=== PATIENT | female | born 1990 | race African-American/Black ===

== ENCOUNTER 2021-01-17 00:32 | Day surgery (SDC) | payer OTHER, MEDICAID, SELFPAY ==
[2021-01-08 15:59] VITALS: BMI 33.3
[2021-01-17] VITALS (8 sets, daily range): BP systolic 115–141; BP diastolic 66–91; PULSE 91–105; RESP 13–20; TEMP 37.1; O2SAT 95–100
[2021-01-17 06:43] LABS: Urine Cotinine NEGATIVE
--- NOTE | 2021-01-17 06:58 | P.PNAN_ITS ---
Anes - Initial Pre Proc Eval Procedure: Operation Date: 01/17/21 07:30 Proposed Procedures p Bilateral Breast Reduction - Adriano Vogel MD Date/Time: 01/17/21 06:58 Surgeon: Adriano Vogel MD Pre Op Diagnosis: macromastia Patient Data Age: 30 Gender: F Height: 1.65 m Weight: 99.6 kg Allergies Allergy/AdvReac Type Severity Reaction Status Date / Time No Known Allergies Allergy Verified 01/17/21 06:30 Home Medications Medication Instructions Recorded Confirmed Type docusate sodium 100 mg capsule 100 mg PO BID #14 cap 01/07/21 01/08/21 Rx ondansetron HCl 4 mg tablet 4 mg PO Q6H PRN #30 tablet 01/07/21 01/08/21 Rx hydrocodone 5 mg-acetaminophen 325 1 tablet PO Q6H PRN #15 tablet 01/08/21 01/08/21 Rx mg tablet Laboratory Tests 01/17/21 06:28 Cotinine Negative Patient hx anesthesia problems: none Family hx anesthesia problems: none Results Review: All pre-operative results and documents have been reviewed as part of the pre-operative evaluation. [facility] Past Medical History Medical History Mitral valve prolapse Family History Family History Grandparent Hypertension Diabetes mellitus Cancer Social History Social History Smoking status: Never smoker Alcohol intake: current Drinks per week: 3 Substance use: never Substance use type: does not use Living arrangements: with family Spiritual care concerns: No Anes - Eval Final PreProcedure Day of Procedure 01/17/21 06:58 Patient weight: obese Heart: regular rate and rhythm Lungs: clear to auscultation Airway: Mallampati scale class II Neurological: alert and oriented Last oral intake: >/= 8 hours ASA classification: II Emergent: no Anesthetic plan: proceed Anesthesia type and monitoring: general LMA and standard monitoring Results Review: All pre-operative results and documents have been reviewed as part of the pre-operative evaluation. Informed Consent: The patient's anesthetic plan and its attendant risks and benefits were discussed with the patient/family/POA. Questions were solicited and answers provided to the satisfaction of the patient/family/POA.
--- NOTE | 2021-01-17 07:00 | WPDHPUPDATE1 ---
History and Physical Update Update Date/Time: 01/17/21 07:00 History and Physical has been reviewed, including an updated exam of the patient. There are NO changes in the patient's condition. Risks, benefits, and alternatives have been discussed and questions answered. Patient agrees to proceed with procedure.
[2021-01-17] MEDS: LACTATED RINGERS 1,000 ML 30 ML IV CONT ×2 (07:17→10:16)
[2021-01-17] MEDS: LACTATED RINGERS IRRIG 1,000 ML, LIDOCAINE HCL 1% LOCAL INJ 50 ML, EPINEPHrine HCL INJ ... INFILTRATE (07:24)
[2021-01-17] MEDS: ceFAZolin 2 GM/D5W 50 ML 2 GM/50 ML BAG IVPB (07:24)
--- NOTE | 2021-01-17 09:59 | W.PM.PROC2 ---
Procedure Note - Detailed Date of Procedure 01/17/21 Pre-op Diagnosis macromastia Post-op Diagnosis same Procedure Performed Bilateral Reduction Mammaplasty Surgeon Adriano Vogel MD Anesthesia general Findings Inverted T Superior medial pedicle Tissue removed: Right - 1070 grams Left - 1299 grams Description of Procedure She is here today for bilateral breast reduction. Previously and again today the risks, benefits, alternatives were discussed in extensive detail. I wanted her to be very realistic about the risks involved as well as expectations. We discussed aftercare and what to monitor for. She understands we can never guarantee final breast size and there will always be asymmetry. I was very upfront and honest about the risks of sensation change and even nipple loss (). Made sure answered all of her questions to her satisfaction today and consent was obtained. She was marked in the preoperative holding area with their verification. The patient was taken to the operating room placed supine on the operating table. Anesthesia was provided by anesthesiology. She was prepped and draped in a standard sterile fashion. A surgical time-out was taken. Stab incisions were made and I tumessed with a tumescent solution. I marked out the nipple-areolar complex at 42 mm. I then de-epithelialized the pedicle. The pedicle was well left well more than 2 cm in thickness. I then removed the inferior portion of the breast as well as the central keel to get shape based on preoperative planning. At this point copiously irrigated with saline solution and verified a strict hemostasis. I reapproximated the pillars using a 2-0 PDS. I tailor tacked the breast into place with elida. She was placed in a sitting position. I verified the nipple-areolar complex position based on preoperative markings, intraoperative measurements, and observation which were in full agreement. There was slight shape asymmetry which was addressed with 4mm basket cannula based on S.A.F.E. technique. Minimal volume removed. This nipple-areolar complex was marked at 42 mm in size. I then placed supine and de-epithelialized this. Nipple-areolar complex was inset with 3-0 stratafix. I closed IMF deep with 1 strattafix. I closed the vertical incision with 3-0 Monocryl in the IMF with 3-0 stratafix. Then everything was closed using a running subcuticular 4-0 Monocryl followed by Steri-Strips. A dressing was placed followed by surgical bra. Patient was awoke and taken to PACU without difficulty. All instrument sponge counts were correct at the end of the case. Estimated Blood Loss 30 Drains No Packing No Pathology yes (bilateral breast tissue) Complications No immediate complications Condition stable Disposition PACU
[2021-01-17] MEDS: oxyCODONE HCL (*CRX) 5 MG TAB IR PO (11:22)
== END 2021-01-17 12:05 | disposition home or self-care (01) ==
PROVIDERS: Visit Provider Surgery Plastic and Reconstructive Surgery
PROC: 0HBV0ZZ Excision of Bilateral Breast, Open Approach (ICD-10-PCS; CPT 19318; principal; 2021-01-17 07:30)
DX: N62 Hypertrophy of breast (principal); I34.1 Nonrheumatic mitral (valve) prolapse; E66.9 Obesity, unspecified; Z68.36 Body mass index [BMI] 36.0-36.9, adult; Z79.899 Other long term (current) drug therapy
CPT/HCPCS: 19318; 80307; 88305; A9270; J0171; J0690; J1100; J1170; J2250; J2405; J2704; J2710; J3010; J7120

== ENCOUNTER 2021-11-27 19:30 | Emergency (ER) | payer OTHER, MEDICAID, SELFPAY ==
[2021-11-27 19:50] VITALS: BP 124/85; PULSE 86; RESP 16; TEMP 37.3; O2SAT 99
--- NOTE | 2021-11-27 20:39 | ED.EAR ---
HPI - Ear Problem General Chief complaint: Ear Stated complaint: left ear pain Time Seen by Provider: 11/27/21 20:43 Related Data Home Medications Medication Instructions Recorded Confirmed norgestimate 0.25 mg-ethinyl 1 tablet PO DAILY 11/27/21 11/27/21 estradiol 35 mcg tablet (Estarylla) Allergies Allergy/AdvReac Type Severity Reaction Status Date / Time No Known Allergies Allergy Verified 11/27/21 20:27 [facility] Past Medical History Medical History Mitral valve prolapse Surgical History Surgical History Hx of bilateral breast reduction surgery Family History Family History Grandparent Hypertension Diabetes mellitus Cancer Social History Social History Smoking status: Unknown if ever smoked Alcohol intake: current Drinks per week: 3 Substance use: never Substance use type: does not use Spiritual care concerns: No Course Vital Signs Vital signs: Vital Signs Temperature 37.3 C 11/27/21 19:50 Pulse Rate 86 11/27/21 19:50 Respiratory Rate 16 11/27/21 19:50 Blood Pressure 124/85 11/27/21 19:50 Pulse Oximetry 99 11/27/21 19:50 Oxygen Delivery Room Air 11/27/21 19:50 Temperature 37.3 C 11/27/21 19:50 Pulse Rate 86 11/27/21 19:50 Respiratory Rate 16 11/27/21 19:50 Blood Pressure 124/85 11/27/21 19:50 Pulse Oximetry 99 11/27/21 19:50 Oxygen Delivery Room Air 11/27/21 19:50 Medical Decision Making Vital Signs Vital Signs: Vital Signs Temperature 37.3 C 11/27/21 19:50 Pulse Rate 86 11/27/21 19:50 Respiratory Rate 16 11/27/21 19:50 Blood Pressure 124/85 11/27/21 19:50 Pulse Oximetry 99 11/27/21 19:50 Oxygen Delivery Room Air 11/27/21 19:50 Temperature 37.3 C 11/27/21 19:50 Pulse Rate 86 11/27/21 19:50 Respiratory Rate 16 11/27/21 19:50 Blood Pressure 124/85 11/27/21 19:50 Pulse Oximetry 99 11/27/21 19:50 Oxygen Delivery Room Air 11/27/21 19:50 Discharge Plan Discharge Clinical Impression: Otitis media of left ear, URI, acute Patient Disposition: Home, Self-Care Condition: Stable Instructions: Antibiotic Form Additional Instructions: Increase fluids especially juices and water [id number] cough and cold medicine of your choice for your symptoms Zyrtec Claritin or Kaity daily include plain Sudafed 1 to 2 tablets 3 times daily heat to the face 20-30 minutes 4-6 times a day for pain Salt water gargles, throat lozenges or throat sprays as desired Antibiotic as directed--finished the medication If your symptoms persist, change or worsen significantly before you can contact your personal physician then please, without delay, go to the emergency department for further evaluation. Follow-up with PCP in 7-10 days or sooner if needed Follow up with PCP soon in regards to your blood pressure which is elevated above threshold for referral. Blood pressure above 120/80 may indicate pre-hypertension. Prescriptions: New amoxicillin 875 mg tablet 875 mg PO Q12H Qty: 20 0RF No Action norgestimate-ethinyl estradiol [Estarylla] 0.25-35 mg-mcg tablet 1 tablet PO DAILY Follow-up/Referrals: UNKNOWN,DOCTOR [Primary Care Provider] - Time of Disposition: 20:48 Quality [place] Coma Scale Eyes: Open Verbal: Oriented and Alert Motor: Follows Commands [place] Coma Total Score: 15
--- NOTE | 2021-11-27 20:43 | ED.EAR ---
HPI - Ear Problem General Chief complaint: Ear Stated complaint: left ear pain Time Seen by Provider: 11/27/21 20:43 Source: patient, RN notes reviewed and old records reviewed Mode of arrival: ambulatory History of Present Illness HPI Narrative: 30 year old female who presents to [facility] care with complaints of left ear pain starting today. Patient reports that she has has sinus congestion since Thursday and nasal drainage, denies any cough or shortness of breath. Patient reports only low grade temperature with no chills sweats or body aches. She has been taking some cold medications and some Mucinex for her congestion. MD Complaint: ear pain Location: left ear Severity: mild Treatment prior to arrival: other (cold medication and mucinex) Related Data Home Medications Medication Instructions Recorded Confirmed norgestimate 0.25 mg-ethinyl 1 tablet PO DAILY 11/27/21 11/27/21 estradiol 35 mcg tablet (Estarylla) Allergies Allergy/AdvReac Type Severity Reaction Status Date / Time No Known Allergies Allergy Verified 11/27/21 20:27 Review of Systems Review of Systems: CONSTITUTIONAL: Denies fever, chills, or sweats. EYES: Denies visual changes, redness, or discharge. ENT: Positive for rhinorrhea, congestion, sore throat,positive left ear otalgia. CARDIOVASCULAR: Denies chest pain, palpitations, or edema. RESPIRATORY: Denies cough or dyspnea. GASTROINTESTINAL: Denies abdominal pain, nausea, vomiting, or diarrhea. GENITOURINARY: Denies dysuria or hematuria. SKIN: Denies rash or itching. MUSCULOSKELETAL: Denies back pain, joint pain, or myalgia. NEUROLOGIC: Denies headache, numbness, or weakness. PSYCHIATRIC: Denies anxiety or depression. All systems reviewed & are unremarkable except as noted in HPI and below [facility] Past Medical History Medical History (Updated 11/28/21 @ 20:15 by Sandrita Tsai NP) COVID-19 02/2020 Missed abortions Mitral valve prolapse Surgical History Surgical History Hx of bilateral breast reduction surgery Family History Family History Grandparent Hypertension Diabetes mellitus Cancer Social History Social History (Updated 11/28/21 @ 20:14 by Sandrita Tsai NP) Smoking status: Never smoker Alcohol intake: current Drinks per week: 3 Substance use: never Substance use type: does not use Living arrangements: with family Gender identity (if verbalized by the patient): Female Spiritual care concerns: No Comments At time of signature, agree with nursing past medical, surgical, social and family history. There is no relevant family history pertinent to the presenting complaint Exam Narrative: GENERAL: Well-appearing, well-nourished, and in no acute distress. HEAD: Normocephalic, atraumatic. EYES: PERRLA and EOMI. ENT: Nares mild redness with clear rhinorrhea no epistaxis. Mucous membranes moist.Left TM red and bulging no drainage from ear canal, right TM normal with good light reflex, throat normal with no lesions or swelling NECK: Supple.no lymphadenopathy CHEST: Clear to auscultation. No respiratory distress.SAO2 99% on room air. HEART: Regular rate and rhythm. No murmur heard. Normal peripheral pulses. ABDOMEN: Soft, nontender, nondistended, normal active bowel sounds. EXTREMITIES: Normal range of motion. No edema. SKIN: Warm, dry, no rash. NEURO: No focal deficits. Alert and oriented x3. Course Course Level of Care: Express Care Visit Vital Signs Vital signs: Vital Signs Temperature 37.3 C 11/27/21 19:50 Pulse Rate 86 11/27/21 19:50 Respiratory Rate 16 11/27/21 19:50 Blood Pressure 124/85 11/27/21 19:50 Pulse Oximetry 99 11/27/21 19:50 Oxygen Delivery Room Air 11/27/21 19:50 Temperature 37.3 C 11/27/21 19:50 Pulse Rate 86 11/27/21 19:50 Respiratory Rate 16 11/27/21 19:50 Blood Pressure 124/85
== END 2021-11-27 20:50 | disposition home or self-care (01) ==
PROVIDERS: Emergency Provider Registered Nurse
DX: H66.92 Otitis media, unspecified, left ear (principal); J06.9 Acute upper respiratory infection, unspecified; I34.1 Nonrheumatic mitral (valve) prolapse; Z86.16 Personal history of COVID-19
CPT/HCPCS: 99213; G0463

== ENCOUNTER 2024-07-26 09:16 | Emergency (ER) | payer BC, SELFPAY ==
--- NOTE | ~2024-07-26 | CT_ITS ---
Non-contrast Head CT History: Headache Technique: Axial non-contrast imaging of the brain was performed. Dose reduction technique was used on this scan by utilizing automated exposure control and iterative reconstruction technique. The dose -length product (DLP) was 605.33 mGy-cm. Findings: There is no evidence of intracranial hemorrhage, mass lesion, or acute infarct. Brain par enchyma appears normal. The ventricles and subarachnoid spaces are normal in size. The calvarium ap pears normal. The visualized paranasal sinuses and mastoid air cells are clear. Impression: No significant abnormality seen. Reviewed, dictated and finalized at location . Impression: No significant abnormality seen.
[2024-07-26 09:32] VITALS: BP 120/85; PULSE 96; RESP 16; TEMP 36.5; O2SAT 100
[2024-07-26 10:04] LABS: BEDSIDEPREGUCG Negative (Negative)
--- OUTSIDE RECORDS SUMMARY | 2024-07-26 10:11 | XMS_ITS | Referral Summary ---
Author Organization [facility] Address [address] [place] [address] Care Team Providers Care Field Service Engineer Name Role Phone Sara Olmos Primary Care Provider + Allergies No known active allergies Medications Estarylla 0.25-35 mg-mcg per tablet Take 1 tablet by mouth daily 01/15/2022 Active Wegovy 1.7 mg/0.75 mL auto-injector INJECT 1.7 MG UNDER THE SKIN EVERY 7 DAYS 4 mL 01/14/2023 Active Active Problems Problem Noted Date Diagnosed Date Class 2 obesity due to exces s calories without serious comorbidity with body mass index (BMI) of 37.0 to 37.9 in adult 11/10/2019 Assessment & Plan (01/29/2022 10:56 AM CDT): Start Contravec Contrave start: Week 1: 1 pill in the AM Week 2: 1 pill in the AM, 1 pill in the PM Week 3: 2 pills in the AM, 1 pill in the PM Week 4: 2 pills in the AM, 2 pills in the PM Assessment & Plan (06/06/2021 3:51 PM UX DESIGN MANAGER): Failed phentermine and topiramate Start Wegovy Assessment & Plan (08/31/2020 12:56 PM CDT): Gaining weight again Restart phentermine/topamax combo Discussed bariatric surgery, but she defers this for now Assessment & Plan (02/13/2020 4:12 PM UX DESIGN MANAGER): BMI Follow-up includes: Weight loss medications. Continue healthy diet, exercise. Will continue phentermine and add Topamax - insurance will not cover Qsymia. Too expensive. Patient MUST monitor BP and will send back [facility] message or call with readings. Assessment & Plan (11/10/2019 2:21 PM CDT): Will try phentermine again BMI Follow-up includes: nutrition counseling, exercise counseling and education provided. 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 Immunizations Immunization Administration Dates Next Due Influenza, Quadrivalent, Spl it, Intramuscular 01/03/2015 Influenza, Unspecified 01/04/2022(Deferr ed: Patient Refused),04/27/2021,01/05/2020, 019 Tdap 11/08/2014 Social History Tobacco Use Types Packs/Day Years Used Date Smoking Tobacco: Never Smokeless Tobacco: Never Tobacco Cessation:Counseling Given: Not Answered Alcohol Use Standard Drinks/Week Comments Yes 0 (1 standard drink = 0.6 oz pur e alcohol) occas PHQ-2 Answer Date Recorded PHQ-2 Total Score (If total score is 3 or more points, staff should administer the PHQ-9) 0 06/09/2022 Comments Unknown Sex and Gender Information Value Date Recorded Sex Assigned at Not on file Legal Sex Female 6:50 PM UX DESIGN MANAGER Gender Identity Not on file Sexual Orientation Not on file Last Filed Vital Signs Vital Sign Reading Time Taken Comments Blood Pressure 120/74 06/09/2022 9:12 AM UX DESIGN MANAGER Pulse 91 06/09/2022 9:12 AM UX DESIGN MANAGER Temperature 36.3 C (97.3 F) 06/09/2022 9:12 AM UX DESIGN MANAGER Respiratory Rate 18 06/09/2022 9:12 AM UX DESIGN MANAGER Oxygen Saturation 98% 06/09/2022 9:12 AM UX DESIGN MANAGER Inhaled Oxygen Concentration - - Weight 102.4 kg (225 lb 12.8 oz) 06/09/2022 9:12 AM UX DESIGN MANAGER Height 165.1 cm (5' 5 ) 06/09/2022 9:12 AM UX DESIGN MANAGER Body Mass Index 37.58 06/09/2022 9:12 AM UX DESIGN MANAGER Plan of Treatment Not on file Insurance [facility] H[facility]/PPO Address: [place] [address] Care Teams Field Service Engineer Relationship Specialty Start Date End Date Sara Olmos PA PCP - General Family Medicine 02/13/20
--- OUTSIDE RECORDS SUMMARY | 2024-07-26 10:11 | XMS_ITS | Data Portability ---
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 [address] [place] [address] 05/09/2024 11:01:44 05/09/2024 15:34:40 Gynecologic examination [id number] Z01.419 Patient is an establishe d patient who presents for a gynecologi phillip Annual Exam. The patient denies any changes in her medical history. The patient denies any changes in her family medical history. Annual Exam:She reports having no significan t SENIOR PRINCIPAL ARCHITECT symptoms.H er menses are regular, occurring every 1 month(s). Menses lasts for 5 days. Reports over the past 6 months they have gotten heavier. Reports using 1 pad/tampon an hour. RTC for TVUS.Pt is currently using nothing for contracept ion. She is satisfied with her current method. Pap History:Jenna bourne is due for a pap smear. Breast History:Jenna bourne denies breast symptoms. Education on Breast Self Awareness given. Family History:Ne gative for Breast Cancer, Cervical Cancer, Colon Cancer, Endometria l Cancer and Ovarian Cancer. MYRisk test offered and declined. Patient is regularly seen by PCP for preventati ve care: Yes Screening for malignant neoplasm of cervix [id number] Z12.4 Contracept ion education 160461812 Z30.09 Contracept lizeth counseling : Discussed options including OCPs, NuvaRing, Nexplanon, hormonal and copper IUDs. Discussed risks, efficacy, noncontrac eptive benefits, and side effects of each option, including risk of VTE with hormonal contracept ion and uterine perforatio n, expulsion, infection with IUD. Depression screening 171 Z13.31 See PHQ-9 Venereal d isease screening [id number] Z11.3 Menorrhagia [id number] N9 2.0 RTC for TVUS Health Concerns Section Related Observation LastModified by Organization Detai ls LastModified Time None Recorded Concern Status LastModified by Organization Details LastModified Time None Recorded Advance Directives Directive None Recorded Payers Encounter Date Sequence Insurance Name Policy Number Policy Krishna Covered Member ID Krishna Member ID Guarantor Name 01/04/2022 1 [facility] Caroline Jones [id number] Caroline Jones 01/04/2022 2 [facility] Caroline Jones [id number] Caroline Jones 05/01/2023 1 [place] [id number] Caroline Jones [id number] Caroline Jones 05/09/2024 1 [place] [id number] Caroilne Jones [id number] Caroline Jones Notes Date Note Type Note Provider Name and Address Organization Details Recorded Time 01/04/2022 text/html Patient is a {{new established e stablished but last seen >3yrs ago}} patient who presents for a gynecological annual exam. The patient {{denies any changes in her medical history* reports the following changes in her medical history:}} The patients {{denies any changes in her family medical history* reports the following changes in her fam med hx:}}. 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 Her menses are {{regular irregular absent}}, occurring every {{1 2 3 4}} month(s). She describes her menstrual flow as {{absent light norm al heavy heavy with clots}} and has had {{frequent occasion al no}} spotting. She is using {{condoms BRIAN POP v aginal ring IUD Depo Provera Nexplanon d iaphgram withdrawal period tracking tubal ligation vasectomy nothing}} for contraception. She is {{satisfied dissati sfied}} with her current method. Pap History: She {{is is not}} due for a pap smear. The patient {{does does not}} have a history of an abnormal pap and/or HPV. Breast History: She {{admits denies}} breast symptoms. She performs breast exams {{never regularly o ccasionally}}. Social History: She {{is is not is not currently}} sexually active with {{a male partner a female partner her her both male and female partners}}. She {{admits denies}} complaints about sexual activity. Patient {{reports* denies}} feeling safe at home from {{emotional, physical, and verbal* emotional p hysical verbal}} abuse. She{{does does not}} desire STD testing. She exercises {{never rarely occa sionally regularly} }. The patient {{admits to denies has quit}} {{smoking and recreational drugs smoking/vapin g using recreational drugs using marijuana}}. She {{admits to denies}} drinking alcohol. Patient is regularly seen by PCP for preventative care: {{Yes No}} BARRY NORTH CNM [address] [place], [address], [email or web address] 01/04/2022 11:23:09 05/01/2023 text/html Caroline is here fo r annual exam. LMP 04/10/23. Last pap 07/09/20. Pt would like std testing today. COLIN MORTON [facility] [place], [address], [facility] [email or web address] 05/01/2023 10:35:33 05/09/2024 text/html Annual GYNReport ed bypatient.Menstrual cycle:Normal menses Urinary symptoms:No hematuria; No incontinence Vulva:No genital lesion Vagina:Normal vaginal discharge Breast:No breast pain; No breast lump; No nipple discharge Sexual complaints:No sexual complaints; No pain during intercourse; Normal libido Menopausal Symptoms:No menopausal symptoms; Normal vaginal lubrication Psychological symptoms:No depression; No anxiety; No PMDD Caroline is here for an annual exam. Pt LMP was 05/03/24. She does not practice control. Pt last pap was in 2020. She scored 0 on the PHQ9 screening. Pt has no additional issues. MANAV RODRIGUEZ-ELVIA [address] [place], [address], [facility] 05/09/2024 11:36:05 OBGyn Episode Ob Episode Information Episode Created Date Number of Fetuses Patient Bloodtype Patient rh Status Prepregnancy Weight lbs Domestic Partner Domestic Partner Phone Father Name Learning Specialist Status 06/21/19 22 1 CLOSED Fetus Data First Name Last Name Admitted to NICU Weight (g) Sex Living Outcome Pediatric Complications Fetus ID Race Codes Race Delivery Type [id number] Dago Calculation Initial Dago Date Initial Exam Date Initial Exam Provider Initial Ultrasound Date Last Menstrual Period Date Ultra Sound Weeks Gestation 0 Eighteen To Twenty Week Dago Update Ultra Sound Date Fundal Height At Umbil Quickening Date Ultra Sound Latest Weeks Gestation Final Dago Confirmed By Final Dago Confirmed Date Final Dago Date Ultra Sound Latest Days Gestation 0 0 Menstrual History Last Menstrual Date Menses Monthly On Bcp Conception Prior Menses Frequency Hcg Plus Date Menarche Onset Age Delivery Information Delivery Date Delivery Type Labor Anesthesia Weeks Gestation Incision Type Labor Labor Length Hrs Delivered By Post Complications Tubal Sterilization Discharge Date Comments 4 None 8 false Discharge Information Feeding Method Contraceptive Method Maternal HG B and HCT Levels Ob Episode Information Episode Created Date Number of Fetuses Patient Bloodtype Patient rh Status Prepregnancy Weight lbs Domestic Partner Domestic Partner Phone Father Name Learning Specialist Status 06/21/19 22 1 CLOSED Fetus Data First Name Last Name Admitted to NICU Weight (g) Sex Living Outcome Pediatric Complications Fetus ID Race Codes Race Delivery Type 2721.55 2 M [id number] Dago Calculation Initial Dago Date Initial Exam Date Initial Exam Provider Initial Ultrasound Date Last Menstrual Period Date Ultra Sound Weeks Gestation 0 Eighteen To Twenty Week Dago Update Ultra Sound Date Fundal Height At Umbil Quickening Date Ultra Sound Latest Weeks Gestation Final Dago Confirmed By Final Dago Confirmed Date Final Dago Date Ultra Sound Latest Days Gestation 0 0 Menstrual History Last Menstrual Date Menses Monthly On Bcp Conception Prior Menses Frequency Hcg Plus Date Menarche Onset Age Delivery Information Delivery Date Delivery Type Labor Anesthesia Weeks Gestation Incision Type Labor Labor Length Hrs Delivered By Post Complications Tubal Sterilization Discharge Date Comments 5 39 false Comments : kidney problems Discharge Information Feeding Method Contraceptive Method Maternal HG B and HCT Levels Ob Episode Information Episode Created Date Number of Fetuses Patient Bloodtype Patient rh Status Prepregnancy Weight lbs Domestic Partner Domestic Partner Phone Father Name Learning Specialist Status 06/21/19 22 1 CLOSED Fetus Data First Name Last Name Admitted to NICU Weight (g) Sex Living Outcome Pediatric Complications Fetus ID Race Codes Race Delivery Type [id number] Dago Calculation Initial Dago Date Initial Exam Date Initial Exam Provider Initial Ultrasound Date Last Menstrual Period Date Ultra Sound Weeks Gestation 0 Eighteen To Twenty Week Dago Update Ultra Sound Date Fundal Height At Umbil Quickening Date Ultra Sound Latest Weeks Gestation Final Dago Confirmed By Final Dago Confirmed Date Final Dago Date Ultra Sound Latest Days Gestation 0 0 Menstrual History Last Menstrual Date Menses Monthly On Bcp Conception Prior Menses Frequency Hcg Plus Date Menarche Onset Age Delivery Information Delivery Date Delivery Type Labor Anesthesia Weeks Gestation Incision Type Labor Labor Length Hrs Delivered By Post Complications Tubal Sterilization Discharge Date Comments 6 None 8 false Discharge Information Feeding Method Contraceptive Method Maternal HG B and HCT Levels Ob Episode Information Episode Created Date Number of Fetuses Patient Bloodtype Patient rh Status Prepregnancy Weight lbs Domestic Partner Domestic Partner Phone Father Name Learning Specialist Status 06/21/19 22 1 CLOSED Fetus Data First Name Last Name Admitted to NICU Weight (g) Sex Living Outcome Pediatric Complications Fetus ID Race Codes Race Delivery Type [id number] Dago Calculation Initial Dago Date Initial Exam Date Initial Exam Provider Initial Ultrasound Date Last Menstrual Period Date Ultra Sound Weeks Gestation 0 Eighteen To Twenty Week Dago Update Ultra Sound Date Fundal Height At Umbil Quickening Date Ultra Sound Latest Weeks Gestation Final Dago Confirmed By Final Dago Confirmed Date Final Dago Date Ultra Sound Latest Days Gestation 0 0 Menstrual History Last Menstrual Date Menses Monthly On Bcp Conception Prior Menses Frequency Hcg Plus Date Menarche Onset Age Delivery Information Delivery Date Delivery Type Labor Anesthesia Weeks Gestation Incision Type Labor Labor Length Hrs Delivered By Post Complications Tubal Sterilization Discharge Date Comments 7 None 8 false Discharge Information Feeding Method Contraceptive Method Maternal HG B and HCT Levels Ob Episode Information Episode Created Date Number of Fetuses Patient Bloodtype Patient rh Status Prepregnancy Weight lbs Domestic Partner Domestic Partner Phone Father Name Learning Specialist Status 06/21/19 22 1 CLOSED Fetus Data First Name Last Name Admitted to NICU Weight (g) Sex Living Outcome Pediatric Complications Fetus ID Race Codes Race Delivery Type 3628.73 6 M [id number] Dago Calculation Initial Dago Date Initial Exam Date Initial Exam Provider Initial Ultrasound Date Last Menstrual Period Date Ultra Sound Weeks Gestation 0 Eighteen To Twenty Week Dago Update Ultra Sound Date Fundal Height At Umbil Quickening Date Ultra Sound Latest Weeks Gestation Final Dago Confirmed By Final Dago Confirmed Date Final Dago Date Ultra Sound Latest Days Gestation 0 0 Menstrual History Last Menstrual Date Menses Monthly On Bcp Conception Prior Menses Frequency Hcg Plus Date Menarche Onset Age Delivery Information Delivery Date Delivery Type Labor Anesthesia Weeks Gestation Incision Type Labor Labor Length Hrs Delivered By Post Complications Tubal Sterilization Discharge Date Comments 0 43.4 false Discharge Information Feeding Method Contraceptive Method Maternal HG B and HCT Levels
--- OUTSIDE RECORDS SUMMARY | 2024-07-26 10:11 | XMS_ITS | Clinical Summary ---
Author Organization [facility] Address [address] [place] [address] Care Team Providers Care Manager Statistical Name Role Phone Sara Olmos Primary Care Provider [phone] Allergies No known active allergies Medications phentermine 37.5 MG tablet Take 37.5 mg by mouth before breakfast. 01/16/2020 Active Active Problems Problem Noted Date Diagnosed Date Encounter for elective induction of labor ([facility]/ [facility]) 08/18/2019 Immunizations Immunization Administration Dates Next Due MODERNA COVID-19 (12+) MRNA, LNP-S, PF, 100 MCG/ 0.5 ML DOSE 05/08/2020,04/10/2020 Family History Medical History Relation Comments None Father Cancer Maternal Grandmother pancreas None Mother Diabetes Paternal Grandmother Hypertension Paternal Grandmother Kidney Disease Paternal Grandmother Relation Status Comments Father Alive Maternal Grandmother Mother Alive Paternal Grandmother Sister Alive Social History Tobacco Use Types Packs/Day Years Used Date Smoking Tobacco: Never Smokeless Tobacco: Never Alcohol Use Standard Drinks/Week Comments No 0 (1 standard drink = 0.6 oz pur e alcohol) AUDIT-C Answer Date Recorded Frequency of Alcohol Consumption Never 03/31/2019 Average Number of Drinks Not on file 019 Frequency of Binge Drinking Not on file 03/07 Comments No Sex and Gender Information Value Date Recorded Sex Assigned at Not on file Legal Sex Female 6:08 PM CDT Gender Identity Not on file Sexual Orientation Not on file Last Filed Vital Signs Vital Sign Reading Time Taken Comments Blood Pressure 128/74 02/19/2020 8:19 AM MARRIAGE COUNSELOR MINISTER Pulse 110 02/19/2020 8:19 AM MARRIAGE COUNSELOR MINISTER Temperature 36.6 C (97.8 F) 02/19/2020 8:19 AM MARRIAGE COUNSELOR MINISTER Respiratory Rate 18 02/19/2020 8:19 AM MARRIAGE COUNSELOR MINISTER Oxygen Saturation 100% 02/19/2020 8:19 AM MARRIAGE COUNSELOR MINISTER Inhaled Oxygen Concentration - - Weight 81.6 kg (180 lb) 02/19/2020 8:19 AM MARRIAGE COUNSELOR MINISTER Height 165.1 cm (5' 5 ) 02/19/2020 8:19 AM MARRIAGE COUNSELOR MINISTER Body Mass Index 29.95 02/19/2020 8:19 AM MARRIAGE COUNSELOR MINISTER Plan of Treatment Health Maintenance Due Date Last Done Comments Cervical Cancer Screening Pa p Smear (Age 30 to 64) Every 3 Years 1988 Annual Physical 12/13/1991 Hepatitis C 2006 DTaP, Tdap and Td Vaccines ( 1 - Tdap) 12/13/2007 Hepatitis B Vaccines (1 of 3 - 19+ 3-dose series) 12/13/2007 Cervical Cancer Screening Pa p with HPV Testing (Age 30 to 64) Every 5 Years 2018 Cervical Cancer Screening wi HPV 2018 COVID-19 Vaccine (2023-2 5 season) 2023 05/08/2020, 04/10/2020 HPV Vaccines Aged Out No longer eligi ble based on patient's age to complete this topic Meningococcal B Vaccine Aged Out No l onger eligible based on patient's age to complete this topic Meningococcal Vaccine Aged Out No loren epifanio eligible based on patient's age to complete this topic Pneumococcal Vaccine: Pediatrics (0 to 5 Years) and At-Risk Patients (6 to 49 Years) Aged Out No longer eligible b ased on patient's age to complete this topic RSV Immunizations Under 20 Months Aged Out No longer eligible b ased on patient's age to complete this topic Insurance [place] [address] [place] [address] INSURANCE Advance Directives * Full Code (Latest Code Status on File) Date Activated Date Inactivated Comments 08/18/2019 12:40 AM 08/18/2019 4:20 PM Care Teams Manager Statistical Relationship Specialty Start Date End Date Sara Olmos PA PCP - General PHYSICIAN SUPERVISORY LIFEGUARD 03/31/19
--- OUTSIDE RECORDS SUMMARY | 2024-07-26 10:11 | XMS_ITS | Clinical Summary ---
Author Organization [facility] Address [address] [place] [address] Care Team Providers Care Freelance Writer Name Role Phone Unavailable Primary Care Provider Unavailabl e Source Comments [facility],non-owned Affiliates and Associated Physician Practices is amultiple site organization consisting of ambulatory clinics and hospital sitesin [place], [place], [place] and [place]. This disclosure is being madepursuant to the Care Everywhere program and may not contain all information available regarding this patient. Last updated 17.[facility] Allergies No known active allergies Medications * Be aware that medications may not be up to date on this document. Alwaysverify current medications with the patient. acetaminophen (TYLENOL) 325 MG tablet Take 325 mg by mouth as needed for Pain or Headache Maximum allowable Acetaminophen amount = 4 Grams (4000 mg) / 24 hours. Active Active Problems Patient Care Coordination No te Formatting of this note migh t be different from the original. 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 ASSISTED PATIENT--PLEASE CALL [phone] IF TRIAGED OR ADMITTED Care Provider: Dr. Dm Beatty (OB), [facility] ([facility]) [facility] consultants involved: Nurse Coordinator- Kiley, [facility]- Rosio, Nephrology- Amber, Footprints- Krys, guest services agent- Reena Diagnosis: Unilateral right multicystic dysplastic kidney, left pelvic kidney US from 12/25/14: Single, live, IUP 34w4d. Appropriate growth. Normal amniotic fluid. 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 Left pelvic kidney. Reassuring UA Dopplers. care needed at : Urine output and BP assessment Planned care after delivery (per 10.30.14 Amber consult): Assessment includes BP measurement, UOP determination, and renal function. Recommend renal ultrasound between day 2 to 7 to be sure of no other associated abnormalities. If no hydronephrosis, then no UTI prophylaxis necessary. Follow-up in renal clinic in 4 weeks with repeat renal ultrasound. Contact web ui developer Ruchi Barrios at [phone] to schedule follow-up. Notify her patient was followed through the [facility]. Tung Nut Grower: TBD- list provided 12/25/14 Planned surveillance: Initial ASSISTED appointment 10/30/14 at 0900 Planned delivery location: [facility] Planned GA at delivery: Term Planned mode of delivery: - TBD Placenta Instructions: Not needed for studies by ASSISTED unless otherwise indicated by Dr. Avelar. Autopsy indicated: Not anticipated as necessary. Genetics note: Patient was offered and declined diagnostic testing and screening. Ingredient Specialist Concerns:12/25/14- There are no social service concerns identified at this time This care plan is based on evaluation and is subject to change based on assessment. Please see Images or Cardiac under Chart Review for US/ ECHO/ MRI reports. Plan of care faxed to [facility] Labor and Delivery 01/04/15 by KK. Social History Tobacco Use Types Packs/Day Years Used Date Smoking Tobacco: Never Alcohol Use Standard Drinks/Week Comments No 0 (1 standard drink = 0.6 oz pur e alcohol) Comments No Sex and Gender Information Value Date Recorded Sex Assigned at Not on file Legal Sex Female 5:43 AM FIRST AID ATTENDANT Gender Identity Not on file Sexual Orientation Not on file Last Filed Vital Signs Vital Sign Reading Time Taken Comments Blood Pressure 108/75 12/25/2014 10:17 AM CDT Pulse 93 12/25/2014 10:17 AM CDT Temperature - - Respiratory Rate - - Oxygen Saturation - - Inhaled Oxygen Concentration - - Weight 97.6 kg (215 lb 2.7 oz) 12/25/2014 10:17 AM CDT Height - - Body Mass Index - - Plan of Treatment Health Maintenance Due Date Last Done Comments HIV SCREENING 12/13/2003 HEPATITIS C SCREENING 12/08/2006 DTAP/TDAP/TD VACCINES (1 - Tdap) 12/13/2007 HEPATITIS B VACCINE (1 of 3 - 19+ 3-dose series) 12/13/2007 COVID-19 VACCINE ( - 2023-2 5 season) 2023 DEPRESSION SCREENING 04/06/2024 INFLUENZA VACCINE (Season Ended) 2024 ZOSTER VACCINE (1 of 2) 2038 HIB VACCINE Aged Out No longer eligi ble based on patient's age to complete this topic HPV VACCINE Aged Out No longer eligi ble based on patient's age to complete this topic MENINGOCOCCAL (Group B) VACC INE SHARED DECISION-MAKING Aged Out No longer eligibl e based on patient's age to complete this topic MENINGOCOCCAL GROUPS A/C/Y/W VACCINE Aged Out No longer eligible b ased on patient's age to complete this topic PNEUMOCOCCAL VACCINE Aged Out No long er eligible based on patient's age to complete this topic Insurance [facility] [facility] Address: [address] [place] [address] MEDICAID - [place] MEDICAID - OUT OF STATE UHC MANAGED MEDICARE ADV
--- OUTSIDE RECORDS SUMMARY | 2024-07-26 10:11 | XMS_ITS | Clinical Summary ---
Author Organization [facility] Address [address] [place] [address] Care Team Providers Care Bessemer Converter Blower Name Role Phone Sara Olmos Primary Care [...] PM Assessment & Plan (06/06/2021 3:51 PM FOREST BOT[employer] INSTRUCTOR): Failed phentermine and topiramate Start Wegovy Assessment & Plan (08/31/2020 12:56 PM CDT): Gaining weight again Restart phentermine/topamax combo Discussed bariatric surgery, but she defers this for now Assessment & Plan (02/13/2020 4:12 PM FOREST BOTANY INSTRUCTOR): BMI Follow-up includes: Weight loss medications. Continue healthy diet, exercise. Will continue phentermine and add Topamax - insurance will not cover Qsymia. Too expensive. Patient MUST monitor BP and will send back GetFresh message or call with readings. Assessment & Plan (11/10/2019 2:21 PM CDT): Will try phentermine again BMI Follow-up includes: nutrition counseling, exercise counseling and education provided. 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 Immunizations Immunization Administration Dates Next Due Influenza, Quadrivalent, Spl it, Intramuscular 01/03/2015 Influenza, Unspecified 01/04/2022(Deferr ed: Patient Refused),04/27/2021,01/05/2020, 019 Tdap 11/08/2014 Surgical History Surgery Date Site/Laterality Comments NO PAST SURGERIES REDUCTION MAMMAPLASTY Family History Medical History Relation Name Comments No Known Problems Father No Known Problems Mother Heart disease Paternal Grandmother Relation Name Status Comments Father Alive Mother Alive Paternal Grandmother Social History Tobacco Use Types Packs/Day Years [...] on file Legal Sex Female 6:50 PM FOREST BOTANY INSTRUCTOR Gender Identity Not on file Sexual Orientation Not on file Obstetrics History Last Filed Vital Signs Vital Sign Reading Time Taken Comments Blood Pressure 120/74 06/09/2022 9:12 AM FOREST BOT[employer] INSTRUCTOR Pulse 91 06/09/2022 9:12 AM FOREST BOT[employer] INSTRUCTOR Temperature 36.3 C (97.3 F) 06/09/2022 9:12 AM FOREST BOTANY INSTRUCTOR Respiratory Rate 18 06/09/2022 9:12 AM FOREST BOTANY INSTRUCTOR Oxygen Saturation 98% 06/09/2022 9:12 AM FOREST BOTANY INSTRUCTOR Inhaled Oxygen Concentration - - Weight 102.4 kg (225 lb 12.8 oz) 06/09/2022 9:12 AM FOREST BOTANY INSTRUCTOR Height 165.1 cm (5' 5 ) 06/09/2022 9:12 AM FOREST BOT[employer] INSTRUCTOR Body Mass Index 37.58 06/09/2022 9:12 AM FOREST BOTANY INSTRUCTOR Plan of Treatment Health Maintenance Due Date Last Done Comments Cervical Cancer Screening 1988 Hepatitis C Screening 1988 Varicella Vaccines (1 of 2 - 13+ 2-dose series) 2001 Hepatitis B Screening 2006 Depression Screening 06/10/2023 06/09/2022, 01/29/2022, 06/06/2021, Additional history exists Regular Well Visit/Exam 18-64 06/10/2023 06/09/2022, 06/06/2021 Covid-19 Vaccine ( season) 2023 05/08/2020, 04/10/2020 Influenza Vaccine (#1) 2023 , 01/05/2020, 01/04/2019, Additional history exists DTaP/Tdap/Td Vaccine (2 - Td or Tdap) 11/08/2024 11/08/2014 HPV Vaccines Aged Out No longer eligi ble based on patient's age to complete this topic Pneumococcal vaccine <65 Aged Out No longer eligible based on patient's age to complete this topic Insurance [facility] H[facility]PPO Address: [facility] [address] [place] [address] Care Teams Bessemer Converter Blower Relationship Specialty Start Date End Date Sara Olmos PA PCP - General Family Medicine 02/13/20
--- OUTSIDE RECORDS SUMMARY | 2024-07-26 10:11 | XMS_ITS | Data Portability ---
Author Organization [facility], [employer] Address [address] [place] [address] Care Team Providers Care Services Host Name Role Phone PANTERA JORDAN Primary Care Provider Assessment Encounter Date Assessment Date Assessment LastModified by Organization Details LastModified Time 03/09/2023 03/09/2023 New patient presented for admission to the practice. Studies ordered as below. Discussed plan with patient, who expressed understanding . Follow up as noted below. [email or web address] Not available 03/09/2023 10:41:16 12/30/2023 12/30/2023 Patient presented for follow up. Studies ordered as below. Discussed plan with patient/quinton dillarder, who expressed understanding . Follow up as noted below. [email or web address] Not available 12/30/2023 19:06:27 Plan of Treatment Reminders Order Date Submit Date Provider Last Modified By Organization Details Last Modified Time Details Appointments None recorded. Lab HIV (1+2) Ab screen, serum 2023 [facility], [address], [place], [address], 4 19:41:24 amylase + lipase, serum 2023 [facility], [address], [place], [address], 4 19:41:24 CMP, serum or plasma 2023 024 [facility], [address], [place], [address], 4 08:22:13 CBC w/ auto diff 2023 024 [facility], [address], [place], [address], 4 08:22:14 H pylori Ag, stool 2023 024 [facility], [address], [place], [address], 4 15:13:53 hepatitis C Ab, serum 2022 023 [facility] Not available 3 16:43:45 lipid panel w/ direct LDL, serum 2022 023 [facility] Not available 3 10:53:43 CMP, serum or plasma 2022 023 [facility] Not available 3 16:43:47 CBC w/ auto diff 2022 023 [facility] Not available 3 16:43:46 HbA1c (hemoglobin A1c), blood 2022 023 [facility] Not available 3 10:53:42 TSH, serum or plasma 2022 023 [facility] Not available 3 16:43:49 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 Surgeries None recorded. Imaging XR, abdomen, complete 2023 024 [facility] [address] , [place] [address], [place], [address], 4 04:13:51 Medication Orders Senna Plus 8.6 mg-50 mg tablet 2023 024 [facility] [address], [address], [place], [address], 19:40:48 omeprazole 20 mg capsule,del ayed release 2023 024 [facility] [address], [address], [place], [address], 19:40:47 Wegovy 1.7 mg/0.75 mL subcutaneou s pen injector 2022 023 [facility] [address], [address], [place], [address], 10:55:19 Patient TargetsNo targets recorded. Patient Instructions Encounter Date Encounter Id Patient Instructions Last Modified By Organization Details Last Modified Time 03/09/2023 [id number] infection from tattoos: care instructions [email or web address] Not available 03/09/2023 10:53:38 body mass index: care instructions [email or web address] Not available 03/09/2023 10:53:38 learning about healthy weight [email or web address] Not available 03/09/2023 10:53:37 12/30/2023 [id number] infection from tattoos: care instructions [email or web address] Not available 12/30/2023 19:40:42 body mass index: care instructions [email or web address] Not available 12/30/2023 19:40:42 learning about healthy weight [email or web address] Not available 12/30/2023 19:40:42 learning about healthy weight [email or web address] Not available 12/30/2023 19:40:42 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 0 Not Available [facility] (Main Location) [address] ,, [place], [address], 03/10/2023 16:43:45 03/09/20 23 03/09/2023 HEPAT ITIS C ANTIB JENNIFER hepatitis C antibody NEGATI VE negati ve Not Available [facility] (Main Location) [address] ,, [place], [address], 03/10/2023 16:43:45 03/09/20 23 03/09/2023 COMPL ETE CBC W/AUT O DIFF WBC white blood cell count 7.0 thous and/u L 3.5-10 .0 Not Available [facility] (Main Location) [address] ,, [place], [address], 03/10/2023 16:43:46 03/09/20 23 03/09/2023 COMPL ETE CBC W/AUT O DIFF WBC red blood cell count 3.8 andrez on/uL 3.5-5. 5 Not Available [facility] (Main Location) [address] ,, [place], [address], 03/10/2023 16:43:46 03/09/20 23 03/09/2023 COMPL ETE CBC W/AUT O DIFF WBC hemoglobin 12.4 g/dL 11.5-1 6.5 Not Available [facility] (Main Location) [address] ,, [place], [address], 03/10/2023 16:43:46 03/09/20 23 03/09/2023 COMPL ETE CBC W/AUT O DIFF WBC hematocrit 39 % 35-55 Not Available [facility] (Main Location) [address] ,, [place], [address], 03/10/2023 16:43:46 03/09/20 23 03/09/2023 COMPL ETE CBC W/AUT O DIFF WBC MCH 33 pg 25-35 Not Available [facility] ,, [place], [address], 03/10/2023 16:43:46 03/09/20 23 03/09/2023 COMPL ETE CBC W/AUT O DIFF WBC MCHC 32 g/dL 31-38 Not Available [facility] (Main Location[facility] [address] ,, [place], [address], 03/10/2023 16:43:46 03/09/20 23 03/09/2023 COMPL ETE CBC W/AUT O DIFF WBC MCV 103 fL 75-100 high Not Available [facility] (Main Location[facility] [facility] ,, [place], [address], 03/10/2023 16:43:46 03/09/20 23 03/09/2023 COMPL ETE CBC W/AUT O DIFF WBC RDW-CV 13 % 11-15 Not Available [facility] (Main Location[facility] [address] ,, [place], [address], 03/10/2023 16:43:46 03/09/20 23 03/09/2023 COMPL ETE CBC W/AUT O DIFF WBC neutrophils% 64.5 % Not Available [facility] (Main Location[facility] [address] ,, [place], [address], 03/10/2023 16:43:46 03/09/20 23 03/09/2023 COMPL ETE CBC W/AUT O DIFF WBC lymphocytes% 27.6 % Not Available [facility] (Main Location[facility] [address] ,, [place], [address], 03/10/2023 16:43:46 03/09/20 23 03/09/2023 COMPL ETE CBC W/AUT O DIFF WBC monocytes% 6.5 % Not Available [facility] (Main Location) [address] ,, [place], [address], 03/10/2023 16:43:46 03/09/20 23 03/09/2023 COMPL ETE CBC W/AUT O DIFF WBC eosinophil % 0.7 % 0.0-7. 0 Not Available [facility] (Main Location) [address] ,, [place], [address], 03/10/2023 16:43:46 03/09/20 23 03/09/2023 COMPL ETE CBC W/AUT O DIFF WBC basophil % 0.4 % 0.0-3. 0 Not Available [facility] (Main Location) [facility] ,, [place], [address], 03/10/2023 16:43:46 03/09/20 23 03/09/2023 COMPL ETE CBC W/AUT O DIFF WBC absolute neutrophils 4.5 cells /uL 1.5-7. 8 Not Available [facility] (Main Location) [address] ,, [place], [address], 03/10/2023 16:43:46 03/09/20 23 03/09/2023 COMPL ETE CBC W/AUT O DIFF WBC absolute lymphocytes 1.92 cells /uL 0.85-3 .90 Not Available [facility] (Main Location) [address] ,, [place], [address], 03/10/2023 16:43:46 03/09/20 23 03/09/2023 COMPL ETE CBC W/AUT O DIFF WBC absolute monocytes 0.5 cells /uL 0.2-1. 0 Not Available [facility] (Main Location) [address] ,, [place], [address], 03/10/2023 16:43:46 03/09/20 23 03/09/2023 COMPL ETE CBC W/AUT O DIFF WBC absolute eosinophils 0.1 cells /uL 0.0-0. 5 Not Available [facility] (Main Location) [address] ,, [place], [address], 03/10/2023 16:43:46 03/09/20 23 03/09/2023 COMPL ETE CBC W/AUT O DIFF WBC absolute basophils 0.0 cells /uL 0.0-0. 2 Not Available [facility] (Main Location) [address] ,, [place], [address], 03/10/2023 16:43:46 03/09/20 23 03/09/2023 COMPL ETE CBC W/AUT O DIFF WBC platelet count 386 thous and/u L 100-40 0 Not Available [facility] (Main Location) [address] ,, [place], [address], 03/10/2023 16:43:46 03/09/20 23 03/09/2023 CMP (COMP REHEN SIVE METAB OLIC PANEL ) glucose 76 mg/dL 74-99 Not Available [facility] (Main Location) [address] ,, [place], [address], 03/10/2023 16:43:47 03/09/20 23 03/09/2023 CMP (COMP REHEN SIVE METAB OLIC PANEL ) urea nitrogen, blood (BUN) 13 mg/dL 6-20 Not Available [facility] (Main Location) [address] ,, [place], [address], 03/10/2023 16:43:47 03/09/20 23 03/09/2023 CMP (COMP REHEN SIVE METAB OLIC PANEL ) total bilirubin 0.4 mg/dL 0.0-1. 2 Not Available [facility] (Main Location) [facility] ,, [place], [address], 03/10/2023 16:43:47 03/09/20 23 03/09/2023 CMP (COMP REHEN SIVE METAB OLIC PANEL ) total protein 7.1 g/dL 6.6-8. 7 Not Available [facility] (Main Location) [employer] [address] ,, [place], [address], 03/10/2023 16:43:47 03/09/20 23 03/09/2023 CMP (COMP REHEN SIVE METAB OLIC PANEL ) alanine aminotransfe rase (ALT) 17 U/L 0-33 Not Available [facility] (Main Location) [facility] ,, [place], [address], 03/10/2023 16:43:47 03/09/20 23 03/09/2023 CMP (COMP REHEN SIVE METAB OLIC PANEL ) alkaline phosphatase 66 U/L 40-130 Not Available [facility] (Main Location) [employer] [address] ,, [place], [address], 03/10/2023 16:43:47 03/09/20 23 03/09/2023 CMP (COMP REHEN SIVE METAB OLIC PANEL ) aspartate aminotransfe rase (AST) 17 U/L 0-32 Not Available [facility] (Main Location) [employer] [address] ,, [place], [address], 03/10/2023 16:43:47 03/09/20 23 03/09/2023 CMP (COMP REHEN SIVE METAB OLIC PANEL ) calcium 9.6 mg/dL 8.6-10 .2 Not Available [facility] (Main Location) [address] ,, [place], [address], 03/10/2023 16:43:47 03/09/20 23 03/09/2023 CMP (COMP REHEN SIVE METAB OLIC PANEL ) albumin 4.5 g/dL 3.5-5. 2 Not Available [facility] (Main Location) [employer] [address] ,, [place], [address], 03/10/2023 16:43:47 03/09/20 23 03/09/2023 CMP (COMP REHEN SIVE METAB OLIC PANEL ) CO2 27 mmol/ L 22-29 Not Available [facility] (Main Location) [employer] [address] ,, [place], [address], 03/10/2023 16:43:47 03/09/20 23 03/09/2023 CMP (COMP REHEN SIVE METAB OLIC PANEL ) creatinine, serum 0.6 mg/dL 0.5-0. 9 Not Available [facility] (Main Location) [address] ,, [place], [address], 03/10/2023 16:43:47 03/09/20 23 03/09/2023 CMP (COMP REHEN SIVE METAB OLIC PANEL ) sodium, serum 138 mmol/ L 136-14 5 Not Available [facility] (Main Location) [address] ,, [place], [address], 03/10/2023 16:43:47 03/09/20 23 03/09/2023 CMP (COMP REHEN SIVE METAB OLIC PANEL ) potassium, serum 4.8 mmol/ L 3.5-5. 1 Not Available [facility] (Main Location) [address] ,, [place], [address], 03/10/2023 16:43:47 03/09/20 23 03/09/2023 CMP (COMP REHEN SIVE METAB OLIC PANEL ) chloride, serum 101 mmol/ L 98-107 Not Available [facility] (Main Location) [address] ,, [place], [address], 03/10/2023 16:43:47 03/09/20 23 03/09/2023 CMP (COMP REHEN SIVE METAB OLIC PANEL ) eGFR 127 >59 Persi stent reduc tion for 3 month s or more in an eGFR <60 mL/mi n/1.7 3 m2 defin es CKD. Patie nts with eGFR value s>/=6 0 mL/mi n/1.7 3 m2 may also have CKD if evide nce of persi stent protu niuri a is prese nt. Addit ional infor светлана braun may be found at www.k doqi. org. Not Available [facility] (Main Location) [address] ,, [place], [address], 03/10/2023 16:43:47 12/04/20 23 03/09/2023 DLDL dldl 114 mg/dL 0-100 high Not Available [facility] (Main Location) [facility] ,, [place], [address], 03/10/2023 16:43:48 03/09/20 23 03/09/2023 LIPID PANEL trigylceride s 78 mg/dL 0-150 Not Available [facility] (Main Location) [facility] ,, [place], [address], 03/10/2023 16:43:48 03/09/20 23 03/09/2023 LIPID PANEL cholesterol 200 mg/dL 0-200 Not Available [facility] (Main Location) [facility] ,, [place], [address], 03/10/2023 16:43:48 03/09/20 23 03/09/2023 LIPID PANEL uhdl 74 mg/dL 45-65 high Not Available [facility] (Main Location) [employer] [address] ,, [place], [address], 03/10/2023 16:43:48 03/09/20 23 03/09/2023 LIPID PANEL LDL, calculated 110 mg/dL 0-100 high Not Available [facility] (Main Location) [employer] [address] ,, [place], [address], 03/10/2023 16:43:48 03/09/20 23 03/09/2023 LIPID PANEL LDL, measured 114 mg/dL <99 high Not Available [facility] (Main Location) [facility] ,, [place], [address], 03/10/2023 16:43:48 03/09/20 23 03/09/2023 LIPID PANEL LDL/HDL ratio 1 mg/dL 0-5 Not Available [facility] (Main Location) [facility] ,, [place], [address], 03/10/2023 16:43:48 03/09/20 23 03/09/2023 LIPID PANEL VLDL 15.6 mg/dL 5.0-40 .0 Not Available [facility] (Main Location) [address] ,, [place], [address], 03/10/2023 16:43:48 03/09/20 23 03/09/2023 LIPID PANEL cholesterol/ HDL ratio 2.70 0.00-5 .00 Not Available [facility] (Main Location) [address] ,, [place], [address], 03/10/2023 16:43:48 03/09/20 23 03/09/2023 THYRO ID STIMU LATIN G HORMO NE (TSH) TSH 1.37 ?IU/m L 0.27-4 .20 Not Available [facility] (Main Location) [address] ,, [place], [address], 03/10/2023 16:43:49 03/09/20 23 03/09/2023 HEMOG LOBIN A1C HGBA1C 4.4 % 4.0-6. 0 Not Available [facility] (Main Location) [address] ,, [place], [address], 03/10/2023 16:43:54 03/11/20 23 03/11/2023 RETIC ULOCY TE reticulocyte count 2.8 % 0.5-2. 0 high Not Available [facility] (Main Location) [address] ,, [place], [address], 03/12/2023 13:23:25 03/11/20 23 03/11/2023 VITAM IN B12 AND FOLAT E folate 10.4 NG/mL 4.4-31 .0 Not Available [facility] (Main Location) [address] ,, [place], [address], 03/12/2023 13:23:26 03/11/20 23 03/11/2023 VITAM IN B12 AND FOLAT E vitamin B12 II 357 pg/mL 232-12 45 Not Available [facility] (Main Location) [facility] ,, [place], [address], 03/12/2023 13:23:26 01/04/20 24 01/04/2024 AMYLA SE amylase 95.0 U/L 31.0-1 24.0 Not Available [facility] [address] [facility] [address], [place], [address], 01/06/2024 08:22:12 01/04/20 24 01/04/2024 COMPR EHENS ABDIRIZAK METAB OLIC PANEL sodium 139 mmol/ L 134-14 4 Not Available [facility] [address] [facility], [place], [address], 01/06/2024 08:22:13 01/04/20 24 01/04/2024 COMPR EHENS ABDIRIZAK METAB OLIC PANEL potassium 4.4 mmol/ L 3.5-5. 2 Not Available [facility] [address] [facility] [address], [place], [address], 01/06/2024 08:22:13 01/04/20 24 01/04/2024 COMPR EHENS ABDIRIZAK METAB OLIC PANEL chloride 105 mmol/ L 98-107 Not Available [facility] [address] [facility] [address], [place], [address], 01/06/2024 08:22:13 01/04/20 24 01/04/2024 COMPR EHENS ABDIRIZAK METAB OLIC PANEL carbon dioxide (co2) 20.0 mmol/ L 18.0-2 9.0 Not Available [facility] [address] [facility] [address], [place], [address], 01/06/2024 08:22:13 01/04/20 24 01/04/2024 COMPR EHENS ABDIRIZAK METAB OLIC PANEL glucose 97 mg/dL 65-99 Gely l Fasti n - 99 mg/dL Impai red Fasti n - 125 mg/dL Diagn ostic of Diabe [facility]: => 126 mg/dL Ameri can [facility], 2008 Not Available [facility] [address] [facility] [address], [place], [address], 01/06/2024 08:22:13 01/04/20 24 01/04/2024 COMPR EHENS ABDIRIZAK METAB OLIC PANEL urea nitrogen (BUN) 16 mg/dL 6-[address] [facility] [address] [facility] [address], [place], [address], 01/06/2024 08:22:13 01/04/20 24 01/04/2024 COMPR EHENS ABDIRIZAK METAB OLIC PANEL creatinine 0.95 mg/dL 0.57-1 .00 Not Available [facility] [address] [facility] [address], [place], [address], 01/06/2024 08:22:13 01/04/20 24 01/04/2024 COMPR EHENS ABDIRIZAK METAB OLIC PANEL eGFR 80 mL/mi nute/ 1.73_ m2 >59 MDRD Study Equat ion: The calcu lated GFR is NOT appli cable for pedia tric (< 18 years old) and > 70 year old patie nts and patie nts that are NOT of stead [place] . Not Available [facility] [address] [facility] [address], [place], [address], 01/06/2024 08:22:13 01/04/20 24 01/04/2024 COMPR EHENS ABDIRIZAK METAB OLIC PANEL calcium 9.6 mg/dL 8.7-10 .2 Not Available [facility] [address] [facility] [address], [place], [address], 01/06/2024 08:22:13 01/04/20 24 01/04/2024 COMPR EHENS ABDIRIZAK METAB OLIC PANEL protein, total 6.8 gm/dL 6.4-8. 3 Not Available [facility] [address] [facility] [address], [place], [address], 01/06/2024 08:22:13 01/04/20 24 01/04/2024 COMPR EHENS ABDIRIZAK METAB OLIC PANEL albumin 4.4 gm/dL 3.5-5. 2 Not Available [facility] [address] [facility] [address], [place], [address], 01/06/2024 08:22:13 01/04/20 24 01/04/2024 COMPR EHENS ABDIRIZAK METAB OLIC PANEL bilirubin, total 0.30 mg/dL 0.00-1 .20 Not Available [facility] [address] [facility] [address], [place], [address], 01/06/2024 08:22:13 01/04/20 24 01/04/2024 COMPR EHENS ABDIRIZAK METAB OLIC PANEL alkaline phosphatase (ALP) 72 U/L 39-117 Not Available [facility] [address] [facility] [address], [place], [address], 01/06/2024 08:22:13 01/04/20 24 01/04/2024 COMPR EHENS ABDIRIZAK METAB OLIC PANEL aspartate aminotransfe rase (AST) 16 U/L 0-32 Not Available [facility] [address] [facility] [address], [place], [address], 01/06/2024 08:22:13 01/04/20 24 01/04/2024 COMPR EHENS ABDIRIZAK METAB OLIC PANEL alanine aminotransfe rase (ALT) 12 U/L 0-33 Not Available [facility] [address] [facility] [address], [place], [address], 01/06/2024 08:22:13 01/04/20 24 01/04/2024 COMPR EHENS ABDIRIZAK METAB OLIC PANEL A/G ratio (calculated) 1.8 ratio 1.0-2. 7 Not Available [facility] [address] [facility] [address], [place], [address], 01/06/2024 08:22:13 01/04/20 24 01/04/2024 COMPR EHENS ABDIRIZAK METAB OLIC PANEL globulin (calculated) 2.4 gm/dL 1.5-3. 8 Not Available [facility] [address], [place], [address], 01/06/2024 08:22:13 01/04/20 24 01/04/2024 COMPR EHENS ABDIRIZAK METAB OLIC PANEL BUN/creatini ne ratio (calculated) 16.8 ratio 8.0-20 .0 Not Available [facility] [address], [place], [address], 01/06/2024 08:22:13 01/04/20 24 01/04/2024 COMPR EHENS ABDIRIZAK METAB OLIC PANEL serum hemolysis index Normal index normal Not Available [facility] [address] [facility] [address], [place], [address], 01/06/2024 08:22:13 01/04/20 24 01/04/2024 LIPAS E lipase 27 U/L 0-59 Not Available [facility] [address] [facility] [address], [place], [address], 01/06/2024 08:22:13 01/04/20 24 01/04/2024 CBC WITH AUTO- DIFFE RENTI AL WBC 7.5 10*3/ uL 3.4-10 .8 Not Available [facility] [address] [facility] [address], [place], [address], 01/06/2024 08:22:14 01/04/20 24 01/04/2024 CBC WITH AUTO- DIFFE RENTI AL RBC 3.46 10*6/ uL 3.80-5 .30 low Not Available [facility] [address] [facility] [address], [place], [address], 01/06/2024 08:22:14 01/04/20 24 01/04/2024 CBC WITH AUTO- DIFFE RENTI AL HGB 11.3 g/dL 11.1-1 5.9 Not Available [facility] [address], [place], [address], 01/06/2024 08:22:14 01/04/20 24 01/04/2024 CBC WITH AUTO- DIFFE RENTI AL HCT 35.6 % 34.0-4 6.6 Not Available [facility] [address] [facility] [address], [place], [address], 01/06/2024 08:22:14 01/04/20 24 01/04/2024 CBC WITH AUTO- DIFFE RENTI AL MCV 103 fL 79-97 high Not Available [facility] [address] [facility] [address], [place], [address], 01/06/2024 08:22:14 01/04/20 24 01/04/2024 CBC WITH AUTO- DIFFE RENTI AL MCH 32.7 pg 26.6-3 3.0 Not Available [facility] [address] [facility] [address], [place], [address], 01/06/2024 08:22:14 01/04/20 24 01/04/2024 CBC WITH AUTO- DIFFE RENTI AL MCHC 31.7 g/dL 31.5-3 5.7 Not Available [facility] [address] [facility] [address], [place], [address], 01/06/2024 08:22:14 01/04/20 24 01/04/2024 CBC WITH AUTO- DIFFE RENTI AL RDW 13.1 % 11.5-1 4.5 Not Available [facility] [address] [facility] [address], [place], [address], 01/06/2024 08:22:14 01/04/20 24 01/04/2024 CBC WITH AUTO- DIFFE RENTI AL platelets 385 10*3/ uL 150-40 0 Not Available [facility] [address], [place], [address], 01/06/2024 08:22:14 01/04/20 24 01/04/2024 CBC WITH AUTO- DIFFE RENTI AL MPV 10 fL 9-13 Not Available [facility] [address], [place], [address], 01/06/2024 08:22:14 01/04/20 24 01/04/2024 CBC WITH AUTO- DIFFE RENTI AL neutrophils 68.7 % 40.0-7 4.0 Not Available [facility] [address] [facility] [address], [place], [address], 01/06/2024 08:22:14 01/04/20 24 01/04/2024 CBC WITH AUTO- DIFFE RENTI AL absolute neutrophils 5.14 10*3/ uL 1.40-7 .00 Not Available [facility] [address] [facility] [address], [place], [address], 01/06/2024 08:22:14 01/04/20 24 01/04/2024 CBC WITH AUTO- DIFFE RENTI AL lymphocytes 23.8 % 14.0-4 6.0 Not Available [facility] [address] [facility] [address], [place], [address], 01/06/2024 08:22:14 01/04/20 24 01/04/2024 CBC WITH AUTO- DIFFE RENTI AL absolute lymphocytes 1.78 10*3/ uL 0.70-3 .10 Not Available [facility] [id number] [facility] [address], [place], [address], 01/06/2024 08:22:14 01/04/20 24 01/04/2024 CBC WITH AUTO- DIFFE RENTI AL monocytes 6.1 % 4.0-12 .0 Not Available [facility] [id number] [facility] [address], [place], [address], 01/06/2024 08:22:14 01/04/20 24 01/04/2024 CBC WITH AUTO- DIFFE RENTI AL absolute monocytes 0.46 10*3/ uL 0.10-0 .90 Not Available [facility] [facility] [address] [facility] [address], [place], [address], 01/06/2024 08:22:14 01/04/20 24 01/04/2024 CBC WITH AUTO- DIFFE RENTI AL eosinophils 0.8 % 0.0-5. 0 Not Available [facility] [address] [facility] [address], [place], [address], 01/06/2024 08:22:14 01/04/20 24 01/04/2024 CBC WITH AUTO- DIFFE RENTI AL absolute eosinophils 0.06 10*3/ uL 0.00-0 .40 Not Available [facility] [address] [facility] [address], [place], [address], 01/06/2024 08:22:14 01/04/20 24 01/04/2024 CBC WITH AUTO- DIFFE RENTI AL basophils 0.3 % 0.0-3. 0 Not Available [facility] [address] [facility] [address], [place], [address], 01/06/2024 08:22:14 01/04/20 24 01/04/2024 CBC WITH AUTO- DIFFE RENTI AL absolute basophils 0.02 10*3/ uL 0.00-0 .20 Not Available [facility] [address] [facility] [address], [place], [address], 01/06/2024 08:22:14 01/04/20 24 01/04/2024 CBC WITH AUTO- DIFFE RENTI AL imm. gran. 0.3 % 0.0-2. 0 Not Available [facility] [address] [facility] [address], [place], [address], 01/06/2024 08:22:14 01/04/20 24 01/04/2024 CBC WITH AUTO- DIFFE RENTI AL abs. imm. gran. 0.02 10*3/ uL 0.00-0 .10 Not Available [facility] [address], [place], [address], 01/06/2024 08:22:14 01/04/20 24 01/06/2024 HIV P24 ANTIG EN/AN TIBOD Y WITH REFLE X TO CONFI RMATI ON HIV Ab/P24 Ag screen Non Reacti ve non reacti ve normal HIV-1 /HIV- 2 antib odies and HIV-1 p24 antig en were NOT detec juan. There is no labor atory evide nce of HIV infec tion. HIV Negat abdirizak Not Available [facility] [address] [facility], [place], [address], 01/06/2024 08:22:14 01/12/20 24 01/14/2024 H. PYLOR I STOOL AG H. pylori stool Ag, EIA NEGATI VE negati ve normal Not Available [facility] [address] [facility] [address], [place], [address], 01/14/2024 15:13:53 Result Notes None recorded. Problems Name Problem SNOMED Code Status Onset Date Resolution Date Notes Provider Name and Address Organization Details Recorded Time Body mass index 25-29 - overweight 248158181 Active 2023 Pantera Jordan MD [address], [place], [address], [facility] 4 19:31:26 Body mass index 30+ - obesity 157924744 Active 2022 Pantera Jordan MD [address], [place], [address], [facility] 3 10:49:15 Tattoo of skin 832893991196 Active 2022 Pantera Jodran MD [address], [place], [address], [facility] 3 10:49:17 Macrocytosi s 065785427 Active 2022 Pantera Jordan MD [address] [facility] [address], [place], [address], [facility] 20:00:24 Problem Notes None recorded. Medical Equipment None Reported. Allergies No known drug allergies Medications Name Sig Start Date Stop Date Status Note LastModified by Organization Details LastModified Time fluconazo le 150 mg tablet TAKE 1 TABLET BY MOUTH EVERY 72 HOURS active Not Available Not Available No t Available hydrocodo ne 5 mg-acetam inophen 325 mg tablet TAKE 1 TABLET BY MOUTH EVERY 4 TO 6 HOURS NEEDED FOR PAIN 03/22 completed Not Available Not Available Not Available metronida zole 500 mg tablet TAKE 1 TABLET BY MOUTH TWICE DAILY active Not Available Not Available No t Available phentermi ne 37.5 mg tablet 03/22 completed Not Available Not Available Not Available cephalexi n 500 mg capsule TAKE 1 CAPSULE BY MOUTH EVERY 6 HOURS UNTIL GONE 03/22 completed Not Available Not Available Not Available omeprazol e 20 mg capsule,d elayed release Take 1 capsule every day by oral route in the morning. active Not Available Not Available No t Available fluticaso ne propionat e 50 mcg/actua tion nasal spray,artemio pension [place] 1 spray every day by intranas al route. active Not Available Not Available No t Available Senna Plus 8.6 mg-50 mg tablet Take 2 tablets every day by oral route. 2023 active Not Available Not Available Not Avai lable Mucinex DM 30 mg-600 mg tablet,ex tended release 12 hr Take 1 tablet every 12 hours by oral route. 12/29 completed Not Available Not Available Not Available Wegovy 1.7 mg/0.75 mL subcutane ous pen injector active approved - expires 01/18/20 24 Not Available Not Available Not Available Wegovy 0.25 mg/0.5 mL subcutane ous pen injector ADMINIST ER 0.25 MG UNDER THE SKIN EVERY 7 DAYS 03/22 completed Not Available Not Available Not Available Vitals Date Recorded Body weight Body temperature Body mass index (BMI) Body height Heart rate Respiratory rate Systolic blood pressure Diastolic blood pressure Provider Name and Address Organization Details Last Updated DateTime 3 94489.5 9 g 98.7 [degF] 30.8 kg/m2 165.1 cm 92 /min 16 /min 121 mm[Hg] 82 mm[Hg] Lisa Juarez [facility] 3 10:34:33 Date Recorded Body height Heart rate Respiratory rate Body temperature Body mass index (BMI) Body weight Systolic blood pressure Diastolic blood pressure Provider Name and Address Organization Details Last Updated DateTime 4 165.1 cm 88 /min 16 /min 97.5 [degF] 29.3 kg/m2 83958.2 6 g 117 mm[Hg] 85 mm[Hg] Lisa Juarez [facility] 4 19:11:35 Social History None recorded. Functional Status None recorded. Mental Status None recorded. Family History Nothing Reported. Medical History No medical history recorded. Gynecological HistoryNo gynecological history recorded. Obstetrics History GPAL:G 0 P 0 0 0 0 Immunizations Vaccine Type Date Status Note Provider Nam e and Address Organization Details Recorded Time Td(adult) unspecified formulation 11/08/2014 completed Pantera Jordan MD [address], [place], [address], [facility] 12/30/2023 19:34:29 Past Encounters Encounter ID Performer Location Encounter Start Date Encounter Closed Date Diagnosis/Indication Diagnosis SNOMED-CT Code Diagnosis ICD10 Code Diagnosis Note [id number] Pantera Jordan MD [facility], [facility] [address] [place] [address] 03/09/2023 09:58:06 03/09/2023 11:03:23 Adult health examination 207124778 Z00.01 Body mass index 30+ - obesity 854242498 Z68.30 Chronic constipation 236 643514 K59.09 miralax PRN Screening for malignant neoplasm of cervix 702265470 Z12.4 Active or passive immunization 833278667 Z23 Tattoo of skin 801874589 1 02 L81.8 [id number] Pantera Jordan MD [facility], [facility] [address] [place] [address] 12/30/2023 18:52:00 12/30/2023 19:44:30 Epigastric pain 80274561 R10.13 hold wegovy Chronic constipation 236 885625 K59.09 miralax PRN Body mass index 25-29 - overweight 547385698 Z68.29 educationd own 9 LBs Macrocytosis 876443343 D 75.89 b12 was NL 03/2023 Tattoo of skin 016159103 1 02 L81.8 hep C -ve 03/2023 Screening for malignant neoplasm of cervix 731236922 Z12.4 per pt had PAP 04/2023 Active or passive immunization 054438197 Z23 Screening procedure 2012 5006 Z13.9 per pt had optometry 11/2023 Viral screening 48980511 4 Z11.59 Health Concerns Section Related Observation LastModified by Organization Detai ls LastModified Time None Recorded Concern Status LastModified by Organization Details LastModified Time None Recorded Advance Directives Directive None Recorded Payers Encounter Date Sequence Insurance Name Policy Number Policy Krishna Covered Member ID Krishna Member ID Guarantor Name 03/09/2023 1 [place] [id number] Caroline Mullinsin [id number] Caroline Robert 12/30/2023 1 [place] [id number] Caroline Mullinsin [id number] Caroline Jones Notes Date Note Type Note Provider Name and Address Organization Details Recorded Time 03/09/2023 text/html Hypertension F/UReported bypatient.Medications: taking medications as directed; no side effects from medication Lifestyle:regular exercise; limiting/avoiding salt; compliant with low salt diet Associated Symptoms:no dizziness; no lightheadedness; no chest pain; no shortness of breath; no palpitations; no edema; no calf pain with exertion; no headacheMedicare Annual Wellness VisitReported bypatient.Diet and Nutrition:healthy diet Fracture Risk:no history of fractures; no recent explained fracture; no sudden unexplained fractures; no previous musculoskeletal injuries Physical Activity:recent increase in physical activity; good physical condition; discussed exercise habits Depression Risk:never feels sad, empty, or tearful; no loss of interest in activities; no significant changes in weight; no sleep disturbances or insomnia; no agitation; no loss of energy; no feelings of worthlessness or guilt; no thoughts of suicide; no history of depression; no history of mood disorders Orientation:no disorientation to time; no disorientation to date; no disorientation to place Concentration and Memory:no decreased concentrating ability; no memory lapses or loss; does not forget words Speech/Motor difficulties:no speech difficulties; no difficulty expressing formulated concepts; no difficulty with fine manipulative tasks; no difficulty writing/copying; no slowed reaction time; does not knock things over when trying to pick them up Hearing:no loss of hearing Vision:no vision problems Falls Risk Assessment:no frequent falls while walking; no fall in the past year; no dizziness/vertigo Home Safety:use of seatbelts; no vision or hearing loss while driving Pantera Jordan MD [address] [facility] [address], [place], [address], [facility] 03/09/2023 10:54:12 12/30/2023 text/html Hypertension F/UReported bypatient.Medications: taking medications as directed; no side effects from medication Lifestyle:regular exercise; limiting/avoiding salt; compliant with low salt diet Associated Symptoms:no dizziness; no lightheadedness; no chest pain; no shortness of breath; no palpitations; no edema; no calf pain with exertion; no headache upper abd pain on and off , 2 weeks , No N/V Pantera Jordan MD [address] [facility] [address], [place], [address], [facility] 12/30/2023 19:40:55 OBGyn Episode No OBEpisode recorded.
[2024-07-26 10:25] LABS: BEDSIDEPREGUCG Negative (Negative)
[2024-07-26] MEDS: SODIUM CHLORIDE 0.9% IV 1,000 ML 999 ML IV CONT (10:25)
[2024-07-26] MEDS: METOCLOPRAMIDE HCL INJ 10 MG/2 ML VIAL IV PUSH (10:25)
[2024-07-26] MEDS: diphenhydrAMINE HCl INJ 50 MG/ML VIAL 25 MG IV PUSH (10:25)
--- NOTE | 2024-07-26 10:30 | ED_ITS ---
HPI - Headache General Chief Complaint: Headache Stated Complaint: headache Time Seen by Provider: 07/26/24 09:23 Source: patient Mode of arrival: ambulatory Limitations: no limitations History of Present Illness HPI Narrative: This is a 33-year-old female that presents to the emergency department for headaches. Ongoing intermittently over the last couple of weeks. Reports a dull achy pain, worse on the right side of her head. No recent injuries. No previous history of headaches or migraines. Denies vision changes, vomiting, focal numbness or weakness. Related Data Home Medications ?Medication ?Instructions ?Recorded ?Confirmed ?Last Taken ?Type norgestimate 0.25 mg-ethinyl 1 tablet PO DAILY 11/27/21 11/27/21 Unknown History estradiol 0.035 mg tablet (Estarylla) Allergies Allergy/AdvReac Type Severity Reaction Status Date / Time No Known Allergies Allergy Verified 07/26/24 09:37 Review of Systems Review of Systems: CONSTITUTIONAL: Denies fever EYES: Denies visual changes GASTROINTESTINAL: Denies vomiting NEUROLOGIC: Reports headache. Denies numbness, or weakness. All systems reviewed & are unremarkable except as noted in HPI and below PMFSH Past Medical History Medical History (Updated 07/26/24 @ 12:02 by Shelby Ribera PA-C) COVID-19 02/2020 Missed abortions Mitral valve prolapse Surgical History Surgical History Hx of bilateral breast reduction surgery Family History Family History Grandparent Hypertension Diabetes mellitus Cancer Social History Social History (Updated 11/28/21 @ 20:14 by Sandrita Tsai NP) Smoking status: Never smoker Alcohol intake: current Drinks per week: 3 Substance use: never Substance use type: does not use Living arrangements: with family Gender identity (if verbalized by the patient): Female Spiritual care concerns: No Exam Narrative: GENERAL: Well-appearing, well-nourished, and in no acute distress. HEAD: Normocephalic, atraumatic. EYES: PERRLA and EOMI. ENT: Nares clear, no rhinorrhea or epistaxis. Mucous membranes moist. Oropharynx without tonsillar hypertrophy exudate or other lesions. Bilateral TMs pearly correia non-bulging NECK: Supple. No adenopathy or masses. CHEST: Clear to auscultation. No respiratory distress. No wheezes rales or rhonchi HEART: Regular rate and rhythm. No murmur heard. Normal peripheral pulses. ABDOMEN: Soft, nontender, nondistended, normal active bowel sounds. EXTREMITIES: Normal range of motion. No edema. Strength equal in bilateral upper and lower extremities (5/5) SKIN: Warm, dry, no rash. NEURO: No focal deficits. Alert and oriented x3. Cranial nerves 2-12 grossly intact PSYCH: Normal mood and affect Course Course Emergency Course: Patient updated on her workup. Resting comfortably Vital Signs Vital signs: Vital Signs Temperature 97.7 F 07/26/24 09:32 Pulse Rate 96 07/26/24 09:32 Respiratory Rate 16 07/26/24 09:32 Blood Pressure 120/85 07/26/24 09:32 Pulse Oximetry 100 07/26/24 09:32 Oxygen Delivery Room Air 07/26/24 09:32 Temperature 97.7 F 07/26/24 09:32 Pulse Rate 72 07/26/24 11:38 Respiratory Rate 17 07/26/24 11:38 Blood Pressure 100/60 07/26/24 11:38 Pulse Oximetry 100 07/26/24 11:38 Oxygen Delivery Room Air 07/26/24 09:32 MDM - Headache MDM Narrative Medical decision making narrative: Patient presents the emergency department for headaches ongoing over the last several weeks. She is afebrile and nontoxic appearing. Her vitals are stable. She is neurologically intact. CT brain is without significant findings. Patient was updated on her workup. Resting comfortably. Instructed to have further follow-up with her primary provider. She was given warnings to return to the ER Differential Diagnosis Differential diagnosis: Likely migraine, tension headache, subarachnoid hemorrhage, headache and sinusitis Lab Data Attestation: I reviewed the patient's lab results. Labs: Lab Results 07/26/24 07/26/24 Range/Units 09:36 10:24 POC Urine HCG, Qual Negative Negative (Negative) Imaging Data Radiologist's impression: ITS Impressions Head CT 07/26/24 10:17 Impression: No significant abnormality seen. Critical Care Time Critical Care Time Critical Care Time: No Discharge Plan Discharge Clinical Impression: Headache Qualifiers: Headache type: unspecified Headache chronicity pattern: acute headache Intractability: not intractable Qualified Code(s): R51.9 - Headache, unspecified Patient Disposition: Home Condition: Stable Instructions: Acute Headache (ED) Additional Instructions: Return to the emergency department if you experience fever, chest pain, shortness of breath, abdominal pain with nausea and vomiting, weakness, numbness, or any other symptoms that are concerning to you. Rest. Remain well hydrated. Bokm-bbo-yurkdwn pain medication as needed Follow up with your primary care doctor Patient Language: Portuguese Prescriptions: No Action norgestimate-ethinyl estradiol [Estarylla] 0.25-35 mg-mcg tablet 1 tablet PO DAILY amoxicillin 875 mg tablet 875 mg PO Q12H Qty: 20 0RF Follow-up/Referrals: Julian,MD Pantera [Primary Care Provider] -
[2024-07-26 10:31] VITALS: BP 119/93; PULSE 78; RESP 17; O2SAT 100
--- OUTSIDE RECORDS SUMMARY | 2024-07-26 11:22 | XMS_ITS | Referral Summary ---
Author Organization [facility] Address [address] [place] [address] Care Team Providers Care Compliance Aide Name Role Phone Sara Olmos Primary Care [...] PM Assessment & Plan (06/06/2021 3:51 PM TUBE BUILDING MACHINE OPERATOR): Failed phentermine and topiramate Start Wegovy Assessment & Plan (08/31/2020 12:56 PM CDT): Gaining weight again Restart phentermine/topamax combo Discussed bariatric surgery, but she defers this for now Assessment & Plan (02/13/2020 4:12 PM TUBE BUILDING MACHINE OPERATOR): BMI Follow-up includes: Weight loss medications. Continue healthy diet, exercise. Will continue phentermine and add Topamax - insurance will not cover Qsymia. Too expensive. Patient MUST monitor BP and will send back [employer] message or call with readings. Assessment & Plan (11/10/2019 2:21 PM CDT): Will try phentermine again BMI Follow-up includes: nutrition counseling, exercise counseling and education provided. 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 Palliative care patient 10/30/2014 Overview (09/28/2018): Pia Marcano RN will be [facility] FP hemodialysis patient care specialist, call [phone] complicated by fet al multicystic dysplastic kidney [...] on file Legal Sex Female 6:50 PM TUBE BUILDING MACHINE OPERATOR Gender Identity Not on file Sexual Orientation Not on file Last Filed Vital Signs Vital Sign Reading Time Taken Comments Blood Pressure 120/74 06/09/2022 9:12 AM TUBE BUILDING MACHINE OPERATOR Pulse 91 06/09/2022 9:12 AM TUBE BUILDING MACHINE OPERATOR Temperature 36.3 C (97.3 F) 06/09/2022 9:12 AM TUBE BUILDING MACHINE OPERATOR Respiratory Rate 18 06/09/2022 9:12 AM TUBE BUILDING MACHINE OPERATOR Oxygen Saturation 98% 06/09/2022 9:12 AM TUBE BUILDING MACHINE OPERATOR Inhaled Oxygen Concentration - - Weight 102.4 kg (225 lb 12.8 oz) 06/09/2022 9:12 AM TUBE BUILDING MACHINE OPERATOR Height 165.1 cm (5' 5 ) 06/09/2022 9:12 AM TUBE BUILDING MACHINE OPERATOR Body Mass Index 37.58 06/09/2022 9:12 AM TUBE BUILDING MACHINE OPERATOR Plan of Treatment Not on file Insurance Care Teams Compliance Aide Relationship Specialty Start Date End Date Sara Olmos PA PCP - General Family Medicine 02/13/20
--- OUTSIDE RECORDS SUMMARY | 2024-07-26 11:22 | XMS_ITS | Clinical Summary ---
Author Organization [facility] [employer] Address [address] [place] [address] Care Team Providers Care Mechanical Manufacturing Technician Name Role Phone Unavailable Primary Care Provider Unavailabl e Source Comments [facility] [employer],non-owned Affiliates and Associated Physician Practices is amultiple site organization consisting of ambulatory clinics and hospital sitesin [place], [place], [place] and [place]. This disclosure is being madepursuant to the Care Everywhere program and may not contain all information available regarding this patient. Last updated 17.[facility] [employer] Allergies No known active allergies Medications * [...] migh t be different from the original. [id number] Problem Noted Date Diagnosed Date High-risk 12/25/2014 Overview (01/04/2015): Pelvic kidney; ; Lt 12/25/2014 Footprints Patient 10/30/2014 Overview (10/30/2014): Pia Marcano RN will be [facility]'s FP child adolescent care, call [phone] complicated by fet al multicystic dysplastic kidney 09/12/2014 Resolved Problems Problem Noted Date Diagnosed Date Resolved Date abnormality in pregnan cy- unilateral R MCDK, L pelvic kidney 09/12/2014 01/29/2015 Overview (01/04/2015): Images from the original note were not included. USP PATIENT--PLEASE CALL [phone] IF TRIAGED OR ADMITTED Care Provider: Dr. Dm Beatty (OB), [facility] ([facility]) [facility] consultants involved: Nurse Coordinator- Kiley, [facility]- Rosio, Nephrology- Amber, Footprints- Krys, greeter guest services- Reena Diagnosis: Unilateral right multicystic dysplastic kidney, [...] 4 weeks with repeat renal ultrasound. Contact patient care secretary Ruchi Barrios at [phone] to schedule follow-up. Notify her patient was followed through the [facility]. Pigment Presser: TBD- list provided 12/25/14 Planned surveillance: Initial USP appointment 10/30/14 at 0900 Planned delivery location: [facility] Planned GA at delivery: Term Planned mode of delivery: - TBD Placenta Instructions: Not needed for studies by USP unless otherwise indicated by Dr. Avelar. Autopsy indicated: Not anticipated as necessary. Genetics note: Patient was offered and declined diagnostic testing and screening. Metal Miner Concerns:12/25/14- There are no social service concerns identified at this time This care plan is based on evaluation and is subject to change based on assessment. Please see Images or Cardiac under Chart Review for US/ ECHO/ MRI reports. Plan of care faxed to [facility] Labor and Delivery 01/04/15 by KK. Social History Tobacco Use Types Packs/Day Years Used Date Smoking Tobacco: Never Alcohol Use Standard Drinks/Week Comments No 0 (1 standard drink = 0.6 oz pur e alcohol) Comments No Sex and Gender Information Value Date Recorded Sex Assigned at Not on file Legal Sex Female 5:43 AM TRUST CLERK Gender Identity Not on file Sexual Orientation [...] patient's age to complete this topic Insurance [employer] [facility] Address: [facility] [address] [place] [address] MEDICAID - [place] MEDICAID - OUT OF STATE UHC MANAGED MEDICARE ADV
--- OUTSIDE RECORDS SUMMARY | 2024-07-26 11:22 | XMS_ITS | Clinical Summary ---
Author Organization [facility] Address [address] [place] [address] Care Team Providers Care Network Intern Name Role Phone Sara Olmos Primary Care [...] PM Assessment & Plan (06/06/2021 3:51 PM SYSTEM ANALYST): Failed phentermine and topiramate Start Wegovy Assessment & Plan (08/31/2020 12:56 PM CDT): Gaining weight again Restart phentermine/topamax combo Discussed bariatric surgery, but she defers this for now Assessment & Plan (02/13/2020 4:12 PM SYSTEM ANALYST): BMI Follow-up includes: Weight loss medications. Continue healthy diet, exercise. Will continue phentermine and add Topamax - insurance will not cover Qsymia. Too expensive. Patient MUST monitor BP and will send back [employer] message or call with readings. Assessment & Plan (11/10/2019 2:21 PM CDT): Will try phentermine again BMI Follow-up includes: nutrition counseling, exercise counseling and education provided. 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 Palliative care patient 10/30/2014 Overview (09/28/2018): Pia Marcano RN will be [facility] childcare center administrator, call [phone] complicated by fet al multicystic dysplastic kidney [...] on file Legal Sex Female 6:50 PM SYSTEM ANALYST Gender Identity Not on file Sexual Orientation Not on file Obstetrics History Last Filed Vital Signs Vital Sign Reading Time Taken Comments Blood Pressure 120/74 06/09/2022 9:12 AM SYSTEM ANALYST Pulse 91 06/09/2022 9:12 AM SYSTEM ANALYST Temperature 36.3 C (97.3 F) 06/09/2022 9:12 AM SYSTEM ANALYST Respiratory Rate 18 06/09/2022 9:12 AM SYSTEM ANALYST Oxygen Saturation 98% 06/09/2022 9:12 AM SYSTEM ANALYST Inhaled Oxygen Concentration - - Weight 102.4 kg (225 lb 12.8 oz) 06/09/2022 9:12 AM SYSTEM ANALYST Height 165.1 cm (5' 5 ) 06/09/2022 9:12 AM SYSTEM ANALYST Body Mass Index 37.58 06/09/2022 9:12 AM SYSTEM ANALYST Plan of Treatment Health Maintenance Due Date [...] patient's age to complete this topic Insurance [facility] CHOICE PLUS Care Teams Network Intern Relationship Specialty Start Date End Date Sara Olmos PA PCP - General Family Medicine 02/13/20
[2024-07-26 11:38] VITALS: BP 100/60; PULSE 72; RESP 17; O2SAT 100
== END 2024-07-26 12:11 | disposition home or self-care (01) ==
PROVIDERS: Emergency Provider Physician Assistant; PCP Internal Medicine
DX: R51.9 Headache, unspecified (principal); I34.1 Nonrheumatic mitral (valve) prolapse
CPT/HCPCS: 70450; 81025; 96361; 96374; 96375; 99284; A9270; J1200; J2765; J7030